=== PATIENT | female | born 1950 | race Caucasian/White ===

== ENCOUNTER 2022-11-07 18:07 | Emergency (ER) | payer OTHER ==
[2022-11-07] MEDS ORDERED: HYDROmorphone 1 MG/ML Syringe IM ONE (18:45)
[2022-11-07] MEDS ORDERED: Propofol 200 MG/20 ML SDV ONE ×2 (20:05→21:53)
[2022-11-07] MEDS ORDERED: HYDROmorphone 0.5 MG/0.5 ML Syringe IVPUSH ONE (20:35)
== END 2022-11-07 22:50 | disposition home or self-care (01) ==
LOC: JP.ED 18:07
DX: S42.141A Displaced fracture of glenoid cavity of scapula, right shoulder, initial encounter for closed fracture (principal); S43.004A Unspecified dislocation of right shoulder joint, initial encounter; I10 Essential (primary) hypertension; W07.XXXA Fall from chair, initial encounter
CPT/HCPCS: 23650; 73020; 73030; 73200; 76377; 96372; 96374; 99284; J1170; J2704